=== PATIENT | male | born 1950 | race Caucasian/White ===

== ENCOUNTER → 2017-08-08 10:40 | Outpatient (CLI) | payer MEDICARE, OTHER, SELFPAY ==
[2017-08-01 09:50] VITALS: BP 108/77; BMI 39.5
== END ==
PROVIDERS: Family Provider Family Medicine; PCP Family Medicine; Visit Provider Internal Medicine Critical Care Medicine
DX: G47.33 Obstructive sleep apnea (adult) (pediatric) (principal)
CPT/HCPCS: 98960; G0463

== ENCOUNTER 2017-10-10 18:02 | Observation (INO) | payer MEDICARE, OTHER, SELFPAY ==
[2017-10-10] VITALS (14 sets, daily range): BP systolic 108–151; BP diastolic 60–89; PULSE 64–88; RESP 12–19; TEMP 36.6; O2SAT 92–98; BMI 41.6; BMI 41.7; BMI 40.7
--- NOTE | 2017-10-10 18:12 | EKG12_ITS ---
Test Reason : REPEAT Blood Pressure : / mmHG Vent. Rate : 069 BPM Atrial Rate : 069 BPM P-R Int : 164 ms QRS Dur : 104 ms QT Int : 416 ms P-R-T Axes : 042 -45 041 degrees QTc Int : 445 ms Normal sinus rhythm Left axis deviation Abnormal ECG Confirmed by JOSE IRAHETA ([id number]), editor managing newspaper GIOVANNY SZYMANSKI ([id number]) on 10/12/2017 2:18:25 PM Referred By: ASIYA Confirmed By:JOSE IRAHETA
--- NOTE | 2017-10-10 18:12 | RAD_ITS ---
XR Chest 1 View INDICATION: CP STARTING THIS AM. PAIN DOWN LEFT ARM. PAIN UP INTO NECK.HX [place] COMPARISON: None FINDINGS: Heart size and pulmonary vascularity are within normal limits. The lungs are clear without evidence of airspace consolidation or pleural effusion. The osseous structures are grossly unremarkable. RAD/Chest 1 View (Portable) IMPRESSION: No radiographic evidence of acute intrathoracic disease. at 1840 Reported and signed by: Brielle Lama MD Electronically Signed: Brielle Lama MD at 18:38 EDT Tel , Service support ,
[2017-10-10 18:22] LABS: Absolute Lymphocyte Count 1.65 X10^3/ul (0.83-4.51); Absolute Neutrophil Count 5.6 X10^3/uL (2.0-7.7); Basophil# 0.04 X10^3/uL; Basophil% 0.5 % (0-1); Eosinophil# 0.26 X10^3/uL; Eosinophils% 3.2 % (0-5); Hematocrit 46.1 % (40-54); Hemoglobin 14.9 g/dl (13.0-16.5); Lymphocyte # 1.65 X10^3/ul (4.0); Lymphocyte % 20.4 % (19-41); Mean Corp Hgb Conc 32.3 g/gl (32-36); Mean Corpuscular Hgb 29.5 pg (27.0-32.0); Mean Corpuscular Volume 91.3 fL (80-94); Mean Platelet Vol. 9.3 fl (6.2-12.0); Monocyte# 0.51 X10^3/uL; Monocyte% 6.3 % (0-10); Neutrophil % 69.4 % (47-70); Platelet Count 217 K/mm3 (150-450); RBC Distribution Width CV 14.3 % (11.6-14.6); RBC Distribution Width SD 46.7 fl (35.1-43.9); Red Blood Count 5.05 M/mm3 (4.6-6.2); White Blood Count 8.1 K/mm3 (4.4-11.0)
[2017-10-10 18:23] LABS: POSITIVE COUNT NO; POSITIVE DIFFERENTIAL NO; POSITIVE MORPHOLOGY NO
[2017-10-10] MEDS: Aspirin 81 MG TAB.CHEW 324 MG PO (18:30)
[2017-10-10 18:52] LABS: Anion Gap 9 (5-15); BUN 14 mg/dL (7-18); BUN/Creat Ratio 11.3 RATIO (10-20); Calcium,Total 8.7 mg/dL (8.5-10.1); Chloride 105 mmol/L (98-107); Creatinine, Serum 1.24 mg/dL (0.70-1.30); EST Glomerular Filtration Rate 61 mL/min (>60); Est Glom Filt Rate - Afr Amer 74 mL/min (>60); Estimated Creatinine Clearance 56.22 ml/min; Glucose 122 mg/dL (74-106); Sodium Level 143 mmol/L (136-145)
[2017-10-10] MEDS: Nitroglycerin Oint 1 INCH PACKET TRANSDERM. (19:06)
--- NOTE | 2017-10-10 19:28 | EKG12_ITS ---
Test Reason : CP Blood Pressure : / mmHG Vent. Rate : 078 BPM Atrial Rate : 078 BPM P-R Int : 170 ms QRS Dur : 104 ms QT Int : 392 ms P-R-T Axes : 054 -17 051 degrees QTc Int : 446 ms Normal sinus rhythm Indeterminate axis Borderline ECG Confirmed by JOSE IRAHETA ([id number]), online content editor GIOVANNY SZYMANSKI ([id number]) on 10/12/2017 2:18:45 PM Referred By: GRANT Confirmed By:JOSE IRAHETA
--- NOTE | 2017-10-10 19:39 | ED.VISSUMM ---
- ER Visit Summary Date of Service: 10/10/17 Chief Complaint: Chest pain History of Present Illness: The patient is a 67 M history of CAD. Prior MS. 4 cardiac stents. Patient states that he has had intermittent chest pain since 530 this morning. He was already awake when it started. Mild dyspnea. No hemoptysis. No leg pain. No history of DVT or PE. He gets chest pain relatively frequently. He has had 2 cardiac cath within the last year. He knows that he has small vessel cardiac disease. He denies any leg pain or swelling. No pleuritic chest pain. Physical Examination: Appearing older male. Vital signs are stable afebrile pulse ox 90% on 2 L no hypoxia. HEENT exam unremarkable. Neck nontender. Lungs clear to auscultation bilaterally. Chest nontender. Heart regular rate and rhythm no murmur. Abdomen soft nontender. Normal bowel sounds. No peritoneal signs. Moving all 4 extremities. Neurovascularly intact. Calves nontender without edema. Equal symmetrical radial pulses. Neurologically is awake alert without focal deficits. Test Results: Patient underwent a cardiac workup. His chest x-ray portable one view showed no acute abnormality read both by myself the radiologist. Initial EKG shows sinus rhythm rate is 78 with no acute signs of MS or ischemia. A repeat EKG was done and showed no change with a sinus rhythm at 69. Again no signs of ischemia. CBC normal. BMP normal. Troponin normal. Patient was given p.o. aspirin. He was given 2 sublingual nitro which significantly reduced his pain and also dropped his blood pressure and he was then given Nitropaste ?1 inch. This has significantly reduced his discomfort. Emergency Department Course and Treatment: She underwent a cardiac workup which was negative. I spoke to the hospitalist who also spoke to his retail assistant store manager on-call and the patient will be brought in for further evaluation of his chest pain. Treatment Plan: [] Disposition: Admission Impression: Acute chest pain uncertain etiology. History of CAD, MS and for cardiac stents. This note was generated with [employer] dictation software. It may contain incorrect words, spelling, and punctuation that were not noted in review of the chart prior to signing ED Disposition - Plan for ED Patient: Chief Complaint: Chest Pain Referrals: Rajan Henley [Primary Care Provider] -
--- NOTE | 2017-10-10 19:43 | ED.DCSUM_ITS ---
- ER Visit Summary Date of Service: 10/10/17 Chief Complaint: Chest pain History of Present Illness: The patient is a 67 M history of CAD. Prior PR. 4 cardiac stents. Patient states that he has had intermittent chest pain since 530 this morning. He was already awake when it started. Mild dyspnea. No hemoptysis. No leg pain. No history of DVT or PE. He gets chest pain relatively frequently. He has had 2 cardiac cath within the last year. He knows that he has small vessel cardiac disease. He denies any leg pain or swelling. No pleuritic chest pain. Physical Examination: Appearing older male. Vital signs are stable afebrile pulse ox 90% on 2 L no hypoxia. HEENT exam unremarkable. Neck nontender. Lungs clear to auscultation bilaterally. Chest nontender. Heart regular rate and rhythm no murmur. Abdomen soft nontender. Normal bowel sounds. No peritoneal signs. Moving all 4 extremities. Neurovascularly intact. Calves nontender without edema. Equal symmetrical radial pulses. Neurologically is awake alert without focal deficits. Test Results: Patient underwent a cardiac workup. His chest x-ray portable one view showed no acute abnormality read both by myself the radiologist. Initial EKG shows sinus rhythm rate is 78 with no acute signs of PR or ischemia. A repeat EKG was done and showed no change with a sinus rhythm at 69. Again no signs of ischemia. CBC normal. BMP normal. Troponin normal. Patient was given p.o. aspirin. He was given 2 sublingual nitro which significantly reduced his pain and also dropped his blood pressure and he was then given Nitropaste ?1 inch. This has significantly reduced his discomfort. Emergency Department Course and Treatment: She underwent a cardiac workup which was negative. I spoke to the hospitalist who also spoke to his panel edge painter on- call and the patient will be brought in for further evaluation of his chest pain. Treatment Plan: [] Disposition: Admission Impression: Acute chest pain uncertain etiology. History of CAD, PR and for cardiac stents. This note was generated with [employer] dictation software. It may contain incorrect words, spelling, and punctuation that were not noted in review of the chart prior to signing ED Disposition - Plan for ED Patient: Chief Complaint: Chest Pain Referrals: Rajan Henley [Primary Care Provider] -
--- NOTE | 2017-10-10 20:12 | PCM.HP.STD ---
Problem List (1) Chest pain Status: Acute Qualifiers: Chest pain type: precordial pain Qualified Code(s): R07.2 - Precordial pain History of Present Illness Date of Admission: 10/10/17 Chief Complaint: Chest pain The patient is a 67 year old M seen in the emergency room at [facility] with chief complaint of intermittent chest pain which started today. He describes the chest pain as being burning and sharp in nature, located under the left breast and radiating into the left arm and into the back. Patient denies any nausea vomiting, he denies any diaphoresis. The chest discomfort is not triggered by any particular activity, it lasts for a few seconds to a few minutes. Patient has had several episodes today. Patient underwent cardiac catheterization last March 2017, he has a history of 3 previous cardiac stents, there was 30% stenosis in the circumflex cardiac stent last March, the remainder of the stents did not have any obstruction. It was noted after the catheterization that the patient was supposed to be placed on Ranexa but the patient states that he was told there was a drug interaction and this was never started. Evaluation in the emergency room included a EKG which showed no evidence of ischemic changes or injury pattern, patient's labs were unremarkable. Chest x-ray was also unremarkable. Patient will be placed in observation status on PCU for chest pain, cardiac enzymes will be cycled, he will undergo a chemical stress test tomorrow if his cardiac enzymes are negative. I discussed his care with Dr. Davis who is on-call for cardiology Past Medical History Past Medical History (Chronic Problems): Chronic Problems (Last Reviewed 08/01/17 @ 09:51 by Nena Robles) Prostate cancer (Chronic) JENY (obstructive sleep apnea) (Chronic) Morbid obesity (Chronic) HTN (hypertension) (Chronic) Hyperlipemia (Chronic) Long-term use of high-risk medication (Chronic) Atherosclerotic heart disease [place] coronary artery w/angina pectoris (Chronic) Allergies Mdawdac-Njr-Qmo Reductase Inhibitor Adverse Reaction (Mild, Verified 10/10/17 20:06) Nausea PT STATES OK TO TAKE ATORVASTATIN Home Medications: Ambulatory Orders Medication Instructions Recorded Aspirin [Adult Low Dose Aspirin EC] 81 mg PO DAILY 04/14/16 Atorvastatin Calcium [Lipitor] 40 mg PO QHS 04/14/16 Cholecalciferol (Vitamin D3) 5,000 units PO DAILY 04/14/16 [Vitamin D3] Clopidogrel Bisulfate [Plavix] 75 mg PO DAILY 04/14/16 Lisinopril [Zestril] 10 mg PO DAILY 04/14/16 Methocarbamol 750 mg PO QHS 04/14/16 Metoprolol Tartrate [Lopressor 50 mg PO BID 04/14/16 (Beta Jatinder)] Multivit-Min/FA/Lycopen/Lutein 1 tab PO DAILY 04/14/16 [Centrum Silver Tablet] Pantoprazole Sodium [Protonix] 40 mg PO DAILY 04/14/16 Sertraline HCl [Zoloft] 50 mg PO QHS 04/14/16 Surgical History: cholecystectomy, tonsillectomy, - - Trigger finger repair, arthrocentesis of the knee Psychiatric History: - - PTSD Lives: Spouse/ Significant Other Smoking Status: Former smoker Tobacco Use: Non-smoker Alcohol: None Drugs: None - *Family History Maternal History Items: Heart Disease Paternal History Items: Cancer - Prostate cancer, Heart Disease, Stroke Review of Systems Constitutional: Denies: Anorexia, Chills, Fever, Night Sweats, Malaise, Weakness, Weight Change, Fatigue Eyes: Denies: Blurred vision, Cataracts, Conjunctivae Inflammation, Double vision, Drainage, Eyelid Inflammation, Pain HEENT: Denies: Difficulty Hearing, Difficulty Swallowing, Dysphasia, Ear Pain, Eye Pain, Hard of Hearing, Head Aches, Hearing Changes, Nasal bleeding, Nasal Congestion, Post Nasal Drip Cardiovascular: Reports: Chest Pain. Denies: Claudication, Chest Pressure, Chest Tightness, Edema, Heaviness, Light Headedness, Orthopnea, Palpitations, Syncope Respiratory: Reports: - - Obstructive sleep apnea. Denies: Cough, Hemoptysis, Pleuritic Pain, Shortness of Breath, Shortness of breath at rest, Shortness of breath upon exertion, Sputum production, Wheezing Gastrointestinal: Denies: Abdominal Pain, Constipation, Diarrhea, Hematemesis, Hematochezia, Nausea, Melena, Vomiting Genitourinary: Reports: Incontinence. Denies: Dysuria, Frequency, Hematuria, Hesitancy, Nocturia, Urgency Musculoskeletal: Reports: Back Pain. Denies: Foot Pain, Hand Pain, Joint Pain, Joint stiffness, Joint swelling, Joint Tenderness, Leg Pain Skin: Denies: Dryness, Jaundice, Pruritis, Rash Neurological: Denies: Blurred vision, Double vision, Slurred speech, Difficulty swallowing, Focal weakness, Headaches, Incoordination, Numbness, Tingling Psychiatric: Denies: Anxiety, Depression, Homicidal Ideations, Suicidal Ideations Endocrine: Denies: Change in Body Habitus, Heat/ Cold Intolerance, Polydipsia, Polyuria, Hx of Irradiation Hematologic/ Lymphatic: Reports: - - History of prostate cancer. Denies: Adenopathy, Anemia, Easy Bruising, Easy Bleeding, Petechiae, Purpura VTE Information - Inpt Only VTE Present on Admission: No VTE Mechan Device Prophylaxis: None VTE Pharm Prophylaxis ordered?: Yes Patient Problems: Active and Suspected Problems (Last Reviewed 08/01/17 @ 09:51 by Nena Robles) Chest pain (Acute) - Physical Exam General: Alert, Oriented x3, Cooperative, No apparent distress, Well developed, Well nourished HEENT: Atraumatic, PERRLA, EOMI, Normocephalic Oral: Moist Mucosa Neck: Supple, No JVD, Negative Carotid Bruits, No Nuchal Rigidity, Trachea Midline, Thyroid Normal Size and Texture Lungs: Clear to auscultation, Normal air movement, No rhonchi, No wheeze, No rales Cardiovascular: Regular rate, Regular Rhythm, Normal S1, Normal S2, No murmurs, No Ectopic Activity, PMI Normal, No rub noted, No Gallop Abdomen: Bowel Sounds Present, Soft, Non Tender, Non-Distended, Obese, No hernias noted Extremities: No clubbing, No cyanosis, Capillary Refill Less than 3 Seconds, Edema - Mild nonpitting edema of the lower legs is noted Skin: No rashes, No breakdown Musculoskeletal: No Tenderness to Palpation of Joints or Extremities, No Muscle Wasting Neurological: Cranial nerves II-XII grossly intact, Neuro grossly intact, Muscle tone normal, Sensory exam intact to light touch and pain, Coordination normal Psych/Mental Status: Normal Affect, Appropriate, Alert and oriented to time, place, person, mood and affect Vital Signs Temp Pulse Resp BP Pulse Ox 97.8 F 76 18 114/77 95 10/10/17 19:49 10/10/17 19:49 10/10/17 19:49 10/10/17 19:49 10/10/17 19:49 Oxygen Flow Rate (L/min) 2 Oxygen Delivery Method Nasal Cannula Weight: 128 kg Body Mass Index (BMI) 41.6 Laboratory Tests Past 24 Hrs 10/10/17 10/10/17 18:07 18:07 WBC 8.1 RBC 5.05 Hgb 14.9 Hct 46.1 MCV 91.3 MCH 29.5 MCHC 32.3 RDW 14.3 RDW Differential 46.7 H Plt Count 217 MPV 9.3 Immature Gran % (Auto) 0.200 Neut % (Auto) 69.4 Lymph % (Auto) 20.4 [place] % (Auto) 6.3 Eos % (Auto) 3.2 Baso % (Auto) 0.5 Absolute Neuts (auto) 5.6 Absolute Lymphs (auto) 1.65 Total Counted Not Reportable Sodium 143 Potassium 4.0 Chloride 105 Carbon Dioxide 29.0 Anion Gap 9 BUN 14 Creatinine 1.24 Estim Creat Clear Calc 56.22 Est GFR (MDRD) Af Amer 74 Est GFR (MDRD) Non-Af 61 BUN/Creatinine Ratio 11.3 Glucose 122 H Calcium 8.7 Troponin I < 0.02 Assessment/Plan Active and Suspected Problems (Last Reviewed 08/01/17 @ 09:51 by Nena Robles) Chest pain (Acute) #1 chest pain in a patient with known coronary artery disease-patient will be placed in observation status on PCU, enzymes will be cycled, if enzymes remain negative patient will undergo a nuclear chemical stress test tomorrow. I will place the patient on Imdur-I will give him 1 dose tonight, patient is on Nitropaste in the emergency room here #2 coronary artery disease with history of 3 coronary artery stents #3 obstructive sleep apnea-patient is on BiPAP at when sleeping with no supplemental oxygen #4 PTSD #5 hyperlipidemia #6 chronic back pain #7 essential hypertension Code Visit OBSV E&M: [id number] Initial observation care L3
--- NOTE | 2017-10-10 20:20 | HP.PCM_ITS ---
Problem List (1) Chest pain Status: Acute Qualifiers: Chest pain type: precordial pain Qualified Code(s): R07.2 - Precordial pain History of Present Illness Date of Admission: 10/10/17 Chief Complaint: Chest pain The patient is a 67 year old M seen in the emergency room at [facility] with chief complaint of intermittent chest pain which started today. He describes the chest pain as being burning and sharp in nature, located under the left breast and radiating into the left arm and into the back. Patient denies any nausea vomiting, he denies any diaphoresis. The chest discomfort is not triggered by any particular activity, it lasts for a few seconds to a few minutes. Patient has had several episodes today. Patient underwent cardiac catheterization last March 2017, he has a history of 3 previous cardiac stents , there was 30% stenosis in the circumflex cardiac stent last March, the remainder of the stents did not have any obstruction. It was noted after the catheterization that the patient was supposed to be placed on Ranexa but the patient states that he was told there was a drug interaction and this was never started. Evaluation in the emergency room included a EKG which showed no evidence of ischemic changes or injury pattern, patient's labs were unremarkable. Chest x- ray was also unremarkable. Patient will be placed in observation status on PCU for chest pain, cardiac enzymes will be cycled, he will undergo a chemical stress test tomorrow if his cardiac enzymes are negative. I discussed his care with Dr. Davis who is on-call for cardiology Past Medical History Past Medical History (Chronic Problems): Chronic Problems (Last Reviewed 08/01/17 @ 09:51 by Nena Robles) Prostate cancer (Chronic) JENY (obstructive sleep apnea) (Chronic) Morbid obesity (Chronic) HTN (hypertension) (Chronic) Hyperlipemia (Chronic) Long-term use of high-risk medication (Chronic) Atherosclerotic heart disease [place] coronary artery w/angina pectoris (Chronic) Allergies Fpmnicn-Kwp-Nlk Reductase Inhibitor Adverse Reaction (Mild, Verified 10/10/17 20 :06) Nausea PT STATES OK TO TAKE ATORVASTATIN Home Medications: Ambulatory Orders Medication Instructions Recorded Aspirin [Adult Low Dose Aspirin EC] 81 mg PO DAILY 04/14/16 Atorvastatin Calcium [Lipitor] 40 mg PO QHS 04/14/16 Cholecalciferol (Vitamin D3) 5,000 units PO DAILY 04/14/16 [Vitamin D3] Clopidogrel Bisulfate [Plavix] 75 mg PO DAILY 04/14/16 Lisinopril [Zestril] 10 mg PO DAILY 04/14/16 Methocarbamol 750 mg PO QHS 04/14/16 Metoprolol Tartrate [Lopressor 50 mg PO BID 04/14/16 (Beta Jatinder)] Multivit-Min/FA/Lycopen/Lutein 1 tab PO DAILY 04/14/16 [Centrum Silver Tablet] Pantoprazole Sodium [Protonix] 40 mg PO DAILY 04/14/16 Sertraline HCl [Zoloft] 50 mg PO QHS 04/14/16 Surgical History: cholecystectomy, tonsillectomy, - - Trigger finger repair, arthrocentesis of the knee Psychiatric History: - - PTSD Lives: Spouse/ Significant Other Smoking Status: Former smoker Tobacco Use: Non-smoker Alcohol: None Drugs: None - *Family History Maternal History Items: Heart Disease Paternal History Items: Cancer - Prostate cancer, Heart Disease, Stroke Review of Systems Constitutional: Denies: Anorexia, Chills, Fever, Night Sweats, Malaise, Weakness , Weight Change, Fatigue Eyes: Denies: Blurred vision, Cataracts, Conjunctivae Inflammation, Double vision, Drainage, Eyelid Inflammation, Pain HEENT: Denies: Difficulty Hearing, Difficulty Swallowing, Dysphasia, Ear Pain, Eye Pain, Hard of Hearing, Head Aches, Hearing Changes, Nasal bleeding, Nasal Congestion, Post Nasal Drip Cardiovascular: Reports: Chest Pain. Denies: Claudication, Chest Pressure, Chest Tightness, Edema, Heaviness, Light Headedness, Orthopnea, Palpitations, Syncope Respiratory: Reports: - - Obstructive sleep apnea. Denies: Cough, Hemoptysis, Pleuritic Pain, Shortness of Breath, Shortness of breath at rest, Shortness of breath upon exertion, Sputum production, Wheezing Gastrointestinal: Denies: Abdominal Pain, Constipation, Diarrhea, Hematemesis, Hematochezia, Nausea, Melena, Vomiting Genitourinary: Reports: Incontinence. Denies: Dysuria, Frequency, Hematuria, Hesitancy, Nocturia, Urgency Musculoskeletal: Reports: Back Pain. Denies: Foot Pain, Hand Pain, Joint Pain, Joint stiffness, Joint swelling, Joint Tenderness, Leg Pain Skin: Denies: Dryness, Jaundice, Pruritis, Rash Neurological: Denies: Blurred vision, Double vision, Slurred speech, Difficulty swallowing, Focal weakness, Headaches, Incoordination, Numbness, Tingling Psychiatric: Denies: Anxiety, Depression, Homicidal Ideations, Suicidal Ideations Endocrine: Denies: Change in Body Habitus, Heat/ Cold Intolerance, Polydipsia, Polyuria, Hx of Irradiation Hematologic/ Lymphatic: Reports: - - History of prostate cancer. Denies: Adenopathy, Anemia, Easy Bruising, Easy Bleeding, Petechiae, Purpura VTE Information - Inpt Only VTE Present on Admission: No VTE Mechan Device Prophylaxis: None VTE Pharm Prophylaxis ordered?: Yes Patient Problems: Active and Suspected Problems (Last Reviewed 08/01/17 @ 09:51 by Nena Robles) Chest pain (Acute) - Physical Exam General: Alert, Oriented x3, Cooperative, No apparent distress, Well developed, Well nourished HEENT: Atraumatic, PERRLA, EOMI, Normocephalic Oral: Moist Mucosa Neck: Supple, No JVD, Negative Carotid Bruits, No Nuchal Rigidity, Trachea Midline, Thyroid Normal Size and Texture Lungs: Clear to auscultation, Normal air movement, No rhonchi, No wheeze, No rales Cardiovascular: Regular rate, Regular Rhythm, Normal S1, Normal S2, No murmurs, No Ectopic Activity, PMI Normal, No rub noted, No Gallop Abdomen: Bowel Sounds Present, Soft, Non Tender, Non-Distended, Obese, No hernias noted Extremities: No clubbing, No cyanosis, Capillary Refill Less than 3 Seconds, Edema - Mild nonpitting edema of the lower legs is noted Skin: No rashes, No breakdown Musculoskeletal: No Tenderness to Palpation of Joints or Extremities, No Muscle Wasting Neurological: Cranial nerves II-XII grossly intact, Neuro grossly intact, Muscle tone normal, Sensory exam intact to light touch and pain, Coordination normal Psych/Mental Status: Normal Affect, Appropriate, Alert and oriented to time, place, person, mood and affect Vital Signs Temp Pulse Resp BP Pulse Ox 97.8 F 76 18 114/77 95 10/10/17 19:49 10/10/17 19:49 10/10/17 19:49 10/10/17 19:49 10/10/17 19:49 Oxygen Flow Rate (L/min) 2 Oxygen Delivery Method Nasal Cannula Weight: 128 kg Body Mass Index (BMI) 41.6 Laboratory Tests Past 24 Hrs 10/10/17 10/10/17 18:07 18:07 WBC 8.1 RBC 5.05 Hgb 14.9 Hct 46.1 MCV 91.3 MCH 29.5 MCHC 32.3 RDW 14.3 RDW Differential 46.7 H Plt Count 217 MPV 9.3 Immature Gran % (Auto) 0.200 Neut % (Auto) 69.4 Lymph % (Auto) 20.4 [place] % (Auto) 6.3 Eos % (Auto) 3.2 Baso % (Auto) 0.5 Absolute Neuts (auto) 5.6 Absolute Lymphs (auto) 1.65 Total Counted Not Reportable Sodium 143 Potassium 4.0 Chloride 105 Carbon Dioxide 29.0 Anion Gap 9 BUN 14 Creatinine 1.24 Estim Creat Clear Calc 56.22 Est GFR (MDRD) Af Amer 74 Est GFR (MDRD) Non-Af 61 BUN/Creatinine Ratio 11.3 Glucose 122 H Calcium 8.7 Troponin I < 0.02 Assessment/Plan Active and Suspected Problems (Last Reviewed 08/01/17 @ 09:51 by Nena Robles) Chest pain (Acute) #1 chest pain in a patient with known coronary artery disease-patient will be placed in observation status on PCU, enzymes will be cycled, if enzymes remain negative patient will undergo a nuclear chemical stress test tomorrow. I will place the patient on Imdur-I will give him 1 dose tonight, patient is on Nitropaste in the emergency room here #2 coronary artery disease with history of 3 coronary artery stents #3 obstructive sleep apnea-patient is on BiPAP at when sleeping with no supplemental oxygen #4 PTSD #5 hyperlipidemia #6 chronic back pain #7 essential hypertension Code Visit OBSV E&M: [id number] Initial observation care L3
[2017-10-10] MEDS: Isosorbide Mononitrate 60 MG Tablet PO (20:57)
[2017-10-10] MEDS: Sertraline 50 MG Tablet PO (22:57)
[2017-10-10] MEDS: Methocarbamol 750 MG Tablet PO (22:57)
[2017-10-10] MEDS: Atorvastatin Calcium 40 MG Tablet PO (22:57)
[2017-10-10] MEDS: Metoprolol Tartrate 50 MG Tablet PO (22:57)
[2017-10-10] MEDS: Heparin Injection 5,000 UNITS/ML Syringe 5000 UNITS SC (22:57)
[2017-10-11] VITALS (13 sets, daily range): BP systolic 82–94; BP diastolic 43–56; PULSE 63–79; RESP 12–18; TEMP 36.4–36.9; O2SAT 93–97
[2017-10-11 02:12] LABS: Absolute Lymphocyte Count 1.72 X10^3/ul (0.83-4.51); Absolute Neutrophil Count 4.6 X10^3/uL (2.0-7.7); Basophil# 0.05 X10^3/uL; Basophil% 0.7 % (0-1); Eosinophil# 0.31 X10^3/uL; Eosinophils% 4.3 % (0-5); Hematocrit 40.6 % (40-54); Hemoglobin 13.5 g/dl (13.0-16.5); Lymphocyte # 1.72 X10^3/ul (4.0); Lymphocyte % 23.8 % (19-41); Mean Corp Hgb Conc 33.3 g/gl (32-36); Mean Corpuscular Hgb 30.3 pg (27.0-32.0); Mean Corpuscular Volume 91.2 fL (80-94); Mean Platelet Vol. 9.3 fl (6.2-12.0); Monocyte% 6.9 % (0-10); Neutrophil # 4.64 X10^3/uL (2.7-7.7); Neutrophil % 64.2 % (47-70); Platelet Count 220 K/mm3 (150-450); RBC Distribution Width CV 14.4 % (11.6-14.6); RBC Distribution Width SD 46.6 fl (35.1-43.9); Red Blood Count 4.45 M/mm3 (4.6-6.2); White Blood Count 7.2 K/mm3 (4.4-11.0)
[2017-10-11 02:19] LABS: POSITIVE COUNT NO; POSITIVE DIFFERENTIAL NO; POSITIVE MORPHOLOGY NO
[2017-10-11 02:30] LABS: Anion Gap 6 (5-15); BUN 16 mg/dL (7-18); BUN/Creat Ratio 13.3 RATIO (10-20); Calcium,Total 8.5 mg/dL (8.5-10.1); Chloride 108 mmol/L (98-107); EST Glomerular Filtration Rate 64 mL/min (>60); Est Glom Filt Rate - Afr Amer 77 mL/min (>60); Glucose 117 mg/dL (74-106); Partial Thromboplast Time 30.5 Seconds (24.1-36.2); Prothrombin Time (Protime)PT. 12.9 SECONDS (11.7-14.9); Sodium Level 142 mmol/L (136-145)
--- NOTE | 2017-10-11 03:04 | EKG12_ITS ---
Test Reason : CP Blood Pressure : / mmHG Vent. Rate : 063 BPM Atrial Rate : 063 BPM P-R Int : 184 ms QRS Dur : 094 ms QT Int : 416 ms P-R-T Axes : 054 010 029 degrees QTc Int : 425 ms Normal sinus rhythm Inferior-posterior infarct , age undetermined , cannot be excluded Abnormal ECG Confirmed by MARCK VAZQUEZ, JOYCE ([id number]), non linear editor GIOVANNY SZYMANSKI ([id number]) on 10/13/2017 1:30:49 PM Referred By: CHRISTINE Confirmed By:JOYCE ACHARYA MD
[2017-10-11] MEDS: 0.9% Normal Saline 1,000 ML 500 ML IV (04:19)
[2017-10-11] MEDS: Aspirin E.C. 81 MG Tablet PO (06:16)
[2017-10-11] MEDS: Clopidogrel Bisulfate 75 MG Tablet PO (06:16)
--- NOTE | 2017-10-11 10:05 | NURSING ---
Unable to get vitals per [facility]SA, pt down at stress.
[2017-10-11] MEDS: Pantoprazole Sodium 40 MG Tablet PO (11:14)
[2017-10-11] MEDS: Acetaminophen 325 MG Tablet 650 MG PO (12:21)
--- NOTE | 2017-10-11 12:56 | STRESSREP ---
Stress Test Report Pharmacologic myocardial perfusion stress test. 67-year-old man with a history of chest pain. Medications aspirin Lipitor Plavix metoprolol lisinopril. Stress protocol: Resting EKG demonstrates normal sinus rhythm with a rate of 64 bpm incomplete right bundle branch block is noted resting blood pressures 100/64 minute meters of mercury. 0.4 mg regadenoson was infused per usual protocol followed by rapid intravenous saline flush injection continuous EKG monitoring was performed. The patient maintained sinus rhythm throughout the recording. The maximum heart rate attained was 89 beats minute which was 58% maximum predicted heart rate the maximum workload attained was 1 metabolic equivalent. The resting blood pressure 100/64 with a final blood pressure 98/68. Myocardial perfusion protocol. 14.6 mCi of technetium 99m sestamibi was injected at rest. 0.4 mg regadenoson was infused per usual protocol peak infusion 45.0 mCi of technetium 99m sestamibi was injected stress images were obtained stress and rest images were reconstructed and compared in the short axis vertical long and horizontal long axis. Gated images were also obtained pre- Perfusion SPECT analysis. Review of the stress images demonstrate normal uptake of tracer noted in all areas of myocardium. The resting images similarly demonstrate normal uptake of tracer noted in all areas myocardium no areas of reversibility are noted suggest ischemia no previous infarct is noted. Gated SPECT analysis: The gated ejection fraction is noted to be 73%. Conclusion: Normal pharmacologic myocardial perfusion stress test. Preserved ejection fraction.
--- NOTE | 2017-10-11 13:19 | DCINST_ITS ---
- Discharge Diagnoses Current Active Problems: Current Active and Chronic Problems (Last Reviewed 08/01/17 @ 09:51 by Nena Robles) Chest pain (Acute) You will use the following diet at home:: Cardiac Discharge Activity: Return to Normal Activity Call your doctor if you observe: Shortness of breath, Dizziness, Fainting spells , Chest pain, Increased palpitations (irregular heartbeat) Allergies/Adverse Reactions: Allergies No Known Allergies Allergy (Verified 10/10/17 20:12) Medications to take at Discharge Aspirin [Adult Low Dose Aspirin EC] 81 mg PO DAILY 04/14/16 Atorvastatin Calcium [Lipitor] 40 mg PO QHS 04/14/16 Cholecalciferol (Vitamin D3) [Vitamin D3] 5,000 units PO DAILY 04/14/16 Clopidogrel Bisulfate [Plavix] 75 mg PO DAILY 04/14/16 Lisinopril [Zestril] 10 mg PO DAILY 04/14/16 Methocarbamol 750 mg PO QHS 04/14/16 Metoprolol Tartrate [Lopressor (beta lorena)] 50 mg PO BID 04/14/16 Multivit-Min/FA/Lycopen/Lutein [Centrum Silver Tablet] 1 tab PO DAILY 04/14/16 Pantoprazole Sodium [Protonix] 40 mg PO DAILY 04/14/16 Sertraline HCl [Zoloft] 50 mg PO QHS 04/14/16 Primary Care Physician: Rajan Henley [Primary Care Provider] - Please follow up with your Primary Care Physician in: 1 Week Please Follow Up With: Nestor Olivas MD When: As scheduled Proposed Discharge Date: 10/11/17
--- NOTE | 2017-10-11 13:20 | PCM.DC.SUM ---
<Romy Pickering - Last Filed: 10/11/17 13:28> Discharge Date and Diagnosis Date of Admission: 10/10/17 Date of Discharge: 10/11/17 - Primary Discharge Diagnosis Active and Suspected Problems (Last Reviewed 08/01/17 @ 09:51 by Nena Robles) 1. Chest pain- ACS ruled out. - Secondary Discharge Diagnosis Chronic Problems (Last Reviewed 08/01/17 @ 09:51 by Nena Robles) Prostate cancer (Chronic) JENY (obstructive sleep apnea) (Chronic) Morbid obesity (Chronic) HTN (hypertension) (Chronic) Hyperlipemia (Chronic) Long-term use of high-risk medication (Chronic) Atherosclerotic heart disease [place] coronary artery w/angina pectoris (Chronic) Hospital Course and Treatment Imaging Results: Diagnostic Data Chest X-Ray 10/10/17 18:12 IMPRESSION: No radiographic evidence of acute intrathoracic disease. at 1840 Reported and signed by: Brielle Lama MD Electronically Signed: Brielle Lama MD at 18:38 EDT Tel , Service support , Operations: None Procedures: Stress test Summary of Care Provided: The patient is a 67 year old M admitted 10/10/17 due to chest pain. Patient underwent cardiac catheterization March 2017 with stent placement in the circumflex, he has history of 3 previous cardiac stents. His other past medical history includes prostate cancer, obstructive sleep apnea, morbid obesity, hypertension, hyperlipidemia, PTSD. EKG showed no evidence of ischemia. Chest x-ray unremarkable. Troponin negative. Patient underwent nuclear stress test which was negative for ischemia. He denies further chest pain. Patient follows with Dr. Olivas as outpatient. Other chronic medical conditions as noted above are stable at this time. Patient will follow with Dr. Olivas in 1-2 weeks. Patient seen and examined prior to discharge. Heart rate regular rate and rhythm. Lungs clear. Neuro grossly intact. Vital signs stable. Patient stable for discharge home with follow-up with primary care physician and cardiology. This patient was seen by [facility] Alicia under the supervision of Dr. Panchal. Discharge Diet: Low fat/ Low Cholesterol Discharge Activity: Return to Normal Activity Call your doctor if you observe: Shortness of breath, Dizziness, Fainting spells, Chest pain, Increased palpitations (irregular heartbeat) Home Medications: Medications to take at Discharge Aspirin [Adult Low Dose Aspirin EC] 81 mg PO DAILY 04/14/16 Atorvastatin Calcium [Lipitor] 40 mg PO QHS 04/14/16 Cholecalciferol (Vitamin D3) [Vitamin D3] 5,000 units PO DAILY 04/14/16 Clopidogrel Bisulfate [Plavix] 75 mg PO DAILY 04/14/16 Lisinopril [Zestril] 10 mg PO DAILY 04/14/16 Methocarbamol 750 mg PO QHS 04/14/16 Metoprolol Tartrate [Lopressor (beta lorena)] 50 mg PO BID 04/14/16 Multivit-Min/FA/Lycopen/Lutein [Centrum Silver Tablet] 1 tab PO DAILY 04/14/16 Pantoprazole Sodium [Protonix] 40 mg PO DAILY 04/14/16 Sertraline HCl [Zoloft] 50 mg PO QHS 04/14/16 Primary Care Physician: Rajan Henley [Primary Care Provider] - Please follow up with your Primary Care Physician in: 1 Week Please Follow Up With: Nestor Olivas MD When: 1-2 Weeks Disposition: Home Minutes spent on discharge:: 35 Patient Condition:: Stable Medical Necessity - Tobacco Use Smoking Status: Former smoker Tobacco Use: Non-smoker Meaningful Use Info Meaningful Use Diagnoses (Choose all that apply): None applicable <Owen Panchal - Last Filed: 10/11/17 18:11> Discharge Date and Diagnosis - Secondary Discharge Diagnosis Chronic Problems (Last Reviewed 08/01/17 @ 09:51 by Nena Robles) Prostate cancer (Chronic) JENY (obstructive sleep apnea) (Chronic) Morbid obesity (Chronic) HTN (hypertension) (Chronic) Hyperlipemia (Chronic) Long-term use of high-risk medication (Chronic) Atherosclerotic heart disease [place] coronary artery w/angina pectoris (Chronic) Hospital Course and Treatment Operations: None Procedures: Stress test Summary of Care Provided: Seen and examined independently. Agree with the above note by the nurse practitioner. The patient is a 67 year old M Kitty with chest pain. Patient had atypical symptoms. Stress test was negative. Patient was discharged home. No further changes were necessary. [] Discharge Diet: Low fat/ Low Cholesterol Discharge Activity: Return to Normal Activity Call your doctor if you observe: Shortness of breath, Dizziness, Fainting spells, Chest pain, Increased palpitations (irregular heartbeat) Disposition: Home Minutes spent on discharge:: 35 Meaningful Use Info Meaningful Use Diagnoses (Choose all that apply): None applicable Code Visit OBSV E&M: 43199 Observation care discharge
--- NOTE | 2017-10-11 13:27 | DS.PCM_ITS ---
<Romy Pickering - Last Filed: 10/11/17 13:28> Discharge Date and Diagnosis Date of Admission: 10/10/17 Date of Discharge: 10/11/17 - Primary Discharge Diagnosis Active and Suspected Problems (Last Reviewed 08/01/17 @ 09:51 by Nena Robles) 1. Chest pain- ACS ruled out. - Secondary Discharge Diagnosis Chronic Problems (Last Reviewed 08/01/17 @ 09:51 by Nena Robles) Prostate cancer (Chronic) JENY (obstructive sleep apnea) (Chronic) Morbid obesity (Chronic) HTN (hypertension) (Chronic) Hyperlipemia (Chronic) Long-term use of high-risk medication (Chronic) Atherosclerotic heart disease [place] coronary artery w/angina pectoris (Chronic) Hospital Course and Treatment Imaging Results: Diagnostic Data Chest X-Ray 10/10/17 18:12 IMPRESSION: No radiographic evidence of acute intrathoracic disease. at 1840 Reported and signed by: Brielle Lama MD Electronically Signed: Brielle Lama MD at 18:38 EDT Tel , Service support , Operations: None Procedures: Stress test Summary of Care Provided: The patient is a 67 year old M admitted 10/10/17 due to chest pain. Patient underwent cardiac catheterization March 2017 with stent placement in the circumflex, he has history of 3 previous cardiac stents. His other past medical history includes prostate cancer, obstructive sleep apnea, morbid obesity, hypertension, hyperlipidemia, PTSD. EKG showed no evidence of ischemia. Chest x-ray unremarkable. Troponin negative. Patient underwent nuclear stress test which was negative for ischemia. He denies further chest pain. Patient follows with Dr. Olivas as outpatient. Other chronic medical conditions as noted above are stable at this time. Patient will follow with Dr. Olivas in 1-2 weeks. Patient seen and examined prior to discharge. Heart rate regular rate and rhythm. Lungs clear. Neuro grossly intact. Vital signs stable. Patient stable for discharge home with follow-up with primary care physician and cardiology. This patient was seen by [facility] Alicia under the supervision of Dr. Panchal. Discharge Diet: Low fat/ Low Cholesterol Discharge Activity: Return to Normal Activity Call your doctor if you observe: Shortness of breath, Dizziness, Fainting spells , Chest pain, Increased palpitations (irregular heartbeat) Home Medications: Medications to take at Discharge Aspirin [Adult Low Dose Aspirin EC] 81 mg PO DAILY 04/14/16 Atorvastatin Calcium [Lipitor] 40 mg PO QHS 04/14/16 Cholecalciferol (Vitamin D3) [Vitamin D3] 5,000 units PO DAILY 04/14/16 Clopidogrel Bisulfate [Plavix] 75 mg PO DAILY 04/14/16 Lisinopril [Zestril] 10 mg PO DAILY 04/14/16 Methocarbamol 750 mg PO QHS 04/14/16 Metoprolol Tartrate [Lopressor (beta lorena)] 50 mg PO BID 04/14/16 Multivit-Min/FA/Lycopen/Lutein [Centrum Silver Tablet] 1 tab PO DAILY 04/14/16 Pantoprazole Sodium [Protonix] 40 mg PO DAILY 04/14/16 Sertraline HCl [Zoloft] 50 mg PO QHS 04/14/16 Primary Care Physician: Rajan Henley [Primary Care Provider] - Please follow up with your Primary Care Physician in: 1 Week Please Follow Up With: Nestor Olivas MD When: 1-2 Weeks Disposition: Home Minutes spent on discharge:: 35 Patient Condition:: Stable Medical Necessity - Tobacco Use Smoking Status: Former smoker Tobacco Use: Non-smoker Meaningful Use Info Meaningful Use Diagnoses (Choose all that apply): None applicable <Owen Panchal - Last Filed: 10/11/17 18:11> Discharge Date and Diagnosis - Secondary Discharge Diagnosis Chronic Problems (Last Reviewed 08/01/17 @ 09:51 by Nena Robles) Prostate cancer (Chronic) JENY (obstructive sleep apnea) (Chronic) Morbid obesity (Chronic) HTN (hypertension) (Chronic) Hyperlipemia (Chronic) Long-term use of high-risk medication (Chronic) Atherosclerotic heart disease koi coronary artery w/angina pectoris (Chronic) Hospital Course and Treatment Operations: None Procedures: Stress test Summary of Care Provided: Seen and examined independently. Agree with the above note by the nurse practitioner. The patient is a 67 year old M Kitty with chest pain. Patient had atypical symptoms. Stress test was negative. Patient was discharged home. No further changes were necessary. [] Discharge Diet: Low fat/ Low Cholesterol Discharge Activity: Return to Normal Activity Call your doctor if you observe: Shortness of breath, Dizziness, Fainting spells , Chest pain, Increased palpitations (irregular heartbeat) Disposition: Home Minutes spent on discharge:: 35 Meaningful Use Info Meaningful Use Diagnoses (Choose all that apply): None applicable Code Visit OBSV E&M: 31918 Observation care discharge
--- NOTE | 2017-10-11 15:31 | NURSING ---
Reviewed and agreed on all charting with Shameka Zamudio RN
== END 2017-10-11 13:19 | disposition home or self-care (01) ==
LOC: ED 19:21 → PCU 20:13
PROVIDERS: Admitting Provider Internal Medicine; Emergency Provider Emergency Medicine; Family Provider Family Medicine; PCP Family Medicine
DX: R07.89 Other chest pain (principal); I25.2 Old myocardial infarction; I25.10 Atherosclerotic heart disease of native coronary artery without angina pectoris; R06.00 Dyspnea, unspecified; Z95.5 Presence of coronary angioplasty implant and graft; Z79.899 Other long term (current) drug therapy; Z79.02 Long term (current) use of antithrombotics/antiplatelets; Z79.82 Long term (current) use of aspirin; R07.2 Precordial pain; G47.33 Obstructive sleep apnea (adult) (pediatric); Z85.46 Personal history of malignant neoplasm of prostate; E78.5 Hyperlipidemia, unspecified; I10 Essential (primary) hypertension; Z87.891 Personal history of nicotine dependence; F43.10 Post-traumatic stress disorder, unspecified; E66.01 Morbid (severe) obesity due to excess calories; Z68.41 Body mass index [BMI] 40.0-44.9, adult; Z71.3 Dietary counseling and surveillance
CPT/HCPCS: 36415; 71045; 78452; 80048; 84484; 85025; 85610; 85730; 93005; 93017; 94002; 94003; 96360; 96361; 96372; 99218; 99285; A9500; J7030; J7040; A4216; G0378; J2785

== ENCOUNTER → 2017-11-14 07:31 | Outpatient (CLI) | payer MEDICARE, OTHER, SELFPAY ==
[2017-11-14 08:52] LABS: AST(SGOT) 16 U/L (15-37); Alanine Aminotransfer ALT/SGPT 32 U/L (16-61); Albumin, Serum 3.6 g/dL (3.2-5.0); Alkaline Phosphatase 98 U/L (45-117); Bilirubin, Direct 0.15 mg/dL (0.00-0.30); Cholesterol 119 mg/dL (200); Globulin 3.5 g/dL (2.2-4.2); High Density Lipoprotein 35 mg/dL; Protein, Total 7.1 g/dL (6.4-8.2); Triglycerides 217 mg/dL; Very Low Density Lipoprotein 43 mg/dL (5-40)
== END ==
PROVIDERS: Nurse Practitioner Family; Family Provider Family Medicine; PCP Family Medicine
DX: E78.5 Hyperlipidemia, unspecified (principal); Z79.899 Other long term (current) drug therapy
CPT/HCPCS: 36415; 80061; 80076

== ENCOUNTER → 2018-01-05 10:30 | Outpatient (CLI) | payer MEDICARE, OTHER, SELFPAY ==
[2018-01-05 11:34] LABS: Erythrocyte Sedimentation Rate 11 mm/hr (0-20)
[2018-01-05 11:45] LABS: Rheumatoid Factor < 10.0 IU/mL (<15)
[2018-01-08 14:44] LABS: SJOGREN'S Anti-SS-A test < 0.2 AI (0.0-0.9); SJOGREN'S Anti-SS-B test < 0.2 AI (0.0-0.9)
[2018-01-09 07:56] LABS: ANTINUCLEAR ANTIBODIES DIRECT Negative (Negative)
== END ==
PROVIDERS: Family Provider Family Medicine; PCP Family Medicine; Visit Provider Otolaryngology
DX: K11.20 Sialoadenitis, unspecified (principal)
CPT/HCPCS: 36415; 85652; 86038; 86235; 86431